=== PATIENT | male | born 1965 | race Caucasian/White ===

== ENCOUNTER 2017-09-01 12:46 | Day surgery (SDC) | payer OTHER ==
[~2017-09-01] VITALS: Ht 162.6 cm; Wt 110.0 kg
[2017-09-01 13:39] VITALS: Ht 162.6 cm; Wt 110.0 kg
[2017-09-01] MEDS ORDERED: NO HOME MEDS (13:48)
[2017-09-01 13:49] VITALS: BP 122/77; PULSE 77; RESP 22
--- NOTE | 2017-09-01 14:20 | OPPN ---
Date/Time of Note Date/Time of Note DATE: 09/01/17 TIME: 14:17 Colonoscopy normal repeat colonoscopy 10 years Operative Report Preoperative Diagnosis Screening colonoscopy Postoperative Diagnosis Normal colonoscopy Operation/Procedure Performed Colonoscopy Surgeon see signature line virtual assistant for advertisers None Anesthesia: moderate sedation (Versed 4 mg/fentanyl 100 mcg moderate sedation including 15 minutes) Estimated blood loss: none Transfusion Required none Specimen None Grafts/Implants none Complications none SONIA LARSON MD Sep 01, 2017 14:20
[2017-09-01] MEDS ORDERED: MIDAZOLAM 1 MG/ML 2 ML INJ ONE ×2 (14:32→14:33)
[2017-09-01] MEDS ORDERED: FENTAnyl 50 MCG/ML VIAL ONE ×2 (14:32)
--- NOTE | 2017-09-02 04:48 | GILP ---
DATE OF PROCEDURE: 09/01/2017 PREOPERATIVE DIAGNOSIS: Abdominal pain, screening colonoscopy. POSTOPERATIVE DIAGNOSIS: Normal colonoscopy except 1 small polyp in the sigmoid colon, 2 mm removed . DESCRIPTION OF PROCEDURE: The patient was put in left lateral decubitus after obtaining informed co nsent, was sedated with 4 mg IV Versed and 100 mcg of fentanyl, a total moderate sedation time 15 mi nutes. Advanced Olympus video colonoscope all the way to cecum. Appendiceal opening and ileocecal valve were identified. Cecum, ascending colon, transverse colon, descending colon normal. In the s igmoid and rectosigmoid area, a 2 mm polyp was noted. This was removed. Patient had no complicatio ns. Upon removal of scope, the patient had no complications. Plan will be to follow and await for biopsy report and probably repeat colonoscopy in 5 years. Dictated By: SONIA MARK/JOSE Conf#: [id number] DID#: [id number] CC: Jeffrey Boone;*EndCC*
== END 2017-09-01 15:52 | disposition home or self-care (01) ==
LOC: GIL 12:46
PROVIDERS: ATTEND Internal Medicine
DX: Z12.11 Encounter for screening for malignant neoplasm of colon (principal); K63.5 Polyp of colon; R10.32 Left lower quadrant pain
CPT/HCPCS: 45380; 88305; J2250; J3010; Z7610